=== PATIENT | male | born 1950 | race Caucasian/White ===

== ENCOUNTER → 2020-06-07 | Outpatient (CLI) | payer MEDICARE | END | disposition home or self-care (01) | LOC: RAH 09:07 | PROVIDERS: ATTEND Specialist | DX: I11.9 Hypertensive heart disease without heart failure (principal); I77.810 Thoracic aortic ectasia; R91.8 Other nonspecific abnormal finding of lung field; I34.0 Nonrheumatic mitral (valve) insufficiency; E78.2 Mixed hyperlipidemia; E88.81 Metabolic syndrome and other insulin resistance; R55 Syncope and collapse | CPT/HCPCS: 71250; 93306; 93356 ==

== ENCOUNTER → 2020-08-23 | Outpatient (CLI) | payer MEDICARE ==
[2020-08-23 16:27] LABS: CREATININE 1.4 mg/dL (0.5-1.5)
== END | disposition home or self-care (01) ==
LOC: RAH 15:04
PROVIDERS: ATTEND Orthopaedic Surgery
DX: M47.816 Spondylosis without myelopathy or radiculopathy, lumbar region (principal); M48.061 Spinal stenosis, lumbar region without neurogenic claudication; Z96.643 Presence of artificial hip joint, bilateral
CPT/HCPCS: 36415; 72148; 80048

== ENCOUNTER → 2020-09-07 | Outpatient (CLI) | payer MEDICARE ==
[~2020-09-07] MED LIST: GADOTERATE MEGLUMINE 5 MMOL/10 ML VIAL IV ONE
== END | disposition home or self-care (01) ==
LOC: RAH 07:49
PROVIDERS: ATTEND Orthopaedic Surgery
DX: M25.452 Effusion, left hip (principal); Z96.643 Presence of artificial hip joint, bilateral
CPT/HCPCS: 73723; A9575

== ENCOUNTER → 2020-10-06 | Outpatient (CLI) | payer MEDICARE | END | disposition home or self-care (01) | LOC: RAH 14:54 | PROVIDERS: ATTEND Neurological Surgery | DX: I70.213 Atherosclerosis of native arteries of extremities with intermittent claudication, bilateral legs (principal) | CPT/HCPCS: 93925 ==

== ENCOUNTER → 2023-02-15 | Outpatient (CLI) | payer MEDICARE ==
[2023-02-15 15:14] LABS: BASOPHILS # (AUTO) 0.09 K/uL (0.00-0.20); BASOPHILS % (AUTO) 1.5 % (0.0-5.0); EOSINOPHILS # (AUTO) 0.16 K/uL (0.00-0.70); EOSINOPHILS % (AUTO) 2.6 % (0.0-8.0); HEMATOCRIT 47.5 % (42-54); IMMATURE GRANULOCYTE ABSOLUTE 0.03 K/uL (0-1); LYMPHOCYTES # (AUTO) 2.5 K/uL (1.0-4.8); LYMPHOCYTES % (AUTO) 40.1 % (21.0-51.0); MEAN CORPUSCULAR HEMOGLOBIN 32.9 pg (27.0-33.0); MEAN CORPUSCULAR HGB CONC 33.5 g/dL (32.0-36.0); MEAN CORPUSCULAR VOLUME 98.1 fL (79-99); MONOCYTES # (AUTO) 0.5 K/uL (0.1-1.0); MONOCYTES % (AUTO) 8.4 % (3.0-13.0); NEUTROPHILS # (AUTO) 2.9 K/uL (1.8-7.7); NEUTROPHILS % (AUTO) 46.9 % (40.0-77.0); PLATELET COUNT (AUTO) 218 K/uL (130-400); RED BLOOD CELL COUNT(AUTO) 4.84 MIL/uL (4.50-6.20); RED CELL DISTRIBUTION WIDTH 13.2 % (11.0-15.5); WHITE BLOOD COUNT (AUTO) 6.2 K/uL (4.8-10.8)
[2023-02-15 15:37] LABS: BILIRUBIN,TOTAL 0.5 mg/dL (0.2-1.0); CREATININE 1.3 mg/dL (0.5-1.5); T4 (THYROXINE) 6.9 ug/dL (4.7-13.3); THYROID STIMULATING HORMONE 0.79 uIU/mL (0.36-3.74)
== END | disposition home or self-care (01) ==
LOC: LAB 11:21
PROVIDERS: ATTEND Internal Medicine Cardiovascular Disease
DX: I25.10 Atherosclerotic heart disease of native coronary artery without angina pectoris (principal); I10 Essential (primary) hypertension; Z79.899 Other long term (current) drug therapy
CPT/HCPCS: 36415; 80053; 80061; 84436; 84443; 84479; 85025

== ENCOUNTER → 2023-02-28 | Outpatient (CLI) | payer OTHER | END | disposition home or self-care (01) | LOC: RAH 16:04 | PROVIDERS: ATTEND Internal Medicine Cardiovascular Disease | DX: Z13.6 Encounter for screening for cardiovascular disorders (principal) | CPT/HCPCS: 75571 ==

== ENCOUNTER → 2023-04-05 | Outpatient (CLI) | payer OTHER | END | disposition home or self-care (01) | LOC: SHCH 12:38 | PROVIDERS: ATTEND Internal Medicine Cardiovascular Disease | DX: I70.203 Unspecified atherosclerosis of native arteries of extremities, bilateral legs (principal) | CPT/HCPCS: 93925 ==

== ENCOUNTER 2023-12-27 11:08 | Emergency (ER) | payer OTHER, MEDICARE ==
[~2023-12-27] VITALS: Ht 193 cm; Wt 104.3 kg
[~2023-12-27 11:08] MED LIST changes: +AEC81 PO; +AMLO-258 PO; +CELE-125 PO; +CLOP75TA32 PO; +EZET10TA48 PO; +GABA300C PO; -GADOTERATE MEGLUMINE 5 MMOL/10 ML VIAL IV ONE; +HYDR12.54 PO; +LOSA50TA64 PO; +MAGN400T40 PO; +METO-391 PO; +OMEG100033 PO; +OMEP20CA12 PO; +PANT20TA18 PO; +POTA99CA PO; +TIZA-211 PO; +UBID400C8 PO; +[UNRECOGNIZED DRUG - OTHER] PO; +kelp PO; +vitamin e PO
[2023-12-27 11:09] VITALS: TEMP 97.9
[2023-12-27 12:01] LABS: BASOPHILS # (AUTO) 0.07 K/uL (0.00-0.20); BASOPHILS % (AUTO) 1.1 % (0.0-5.0); EOSINOPHILS # (AUTO) 0.12 K/uL (0.00-0.70); EOSINOPHILS % (AUTO) 1.9 % (0.0-8.0); IMMATURE GRANULOCYTE ABSOLUTE 0.02 K/uL (0-1); LYMPHOCYTES # (AUTO) 2.3 K/uL (1.0-4.8); LYMPHOCYTES % (AUTO) 36.2 % (21.0-51.0); MEAN CORPUSCULAR HEMOGLOBIN 32.3 pg (27.0-33.0); MEAN CORPUSCULAR HGB CONC 33.6 g/dL (32.0-36.0); MEAN CORPUSCULAR VOLUME 96.2 fL (79-99); MONOCYTES # (AUTO) 0.5 K/uL (0.1-1.0); MONOCYTES % (AUTO) 7.7 % (3.0-13.0); NEUTROPHILS # (AUTO) 3.3 K/uL (1.8-7.7); NEUTROPHILS % (AUTO) 52.8 % (40.0-77.0); PLATELET COUNT (AUTO) 196 K/uL (130-400); RED BLOOD CELL COUNT(AUTO) 4.68 MIL/uL (4.50-6.20); RED CELL DISTRIBUTION WIDTH 13.1 % (11.0-15.5); WHITE BLOOD COUNT (AUTO) 6.3 K/uL (4.8-10.8)
[2023-12-27 12:10] LABS: CREATININE 1.6 mg/dL (0.5-1.3); POTASSIUM 4.7 mmol/L (3.5-5.1)
[2023-12-27 12:25] LABS: B-TYPE NATRIURETIC PEPTIDE 54 pg/mL (0-100)
[2023-12-27] MEDS ORDERED: FURO-152 PO (13:21)
[2023-12-27 13:31] VITALS: BP 135/69; PULSE 56; RESP 16; O2SAT 100
== END 2023-12-27 13:35 | disposition home or self-care (01) ==
LOC: EDH 11:08
DX: R60.0 Localized edema (principal); I12.9 Hypertensive chronic kidney disease with stage 1 through stage 4 chronic kidney disease, or unspecified chronic kidney disease; N18.30 Chronic kidney disease, stage 3 unspecified; K21.9 Gastro-esophageal reflux disease without esophagitis; M19.90 Unspecified osteoarthritis, unspecified site; E78.00 Pure hypercholesterolemia, unspecified; Z88.8 Allergy status to other drugs, medicaments and biological substances; Z79.82 Long term (current) use of aspirin; Z79.899 Other long term (current) drug therapy; Z95.1 Presence of aortocoronary bypass graft; Z98.890 Other specified postprocedural states
CPT/HCPCS: 36415; 80048; 83735; 83880; 85025; 93005

== ENCOUNTER 2024-04-02 18:07 | Observation (INO) | payer OTHER ==
[~2024-04-02] VITALS: Ht 190.5 cm; Wt 101.6 kg
[~2024-04-02 18:07] MED LIST changes: +ALIR75PE5 SQ; +AMLO-257 PO; -AMLO-258 PO; +ASCO100031 PO; +CETI10TA87 PO; +COQ10 PO; +DOCU-116 PO; +HYDR-4060 PO; +HYDR5TAB14 PO; -MAGN400T40 PO; -OMEP20CA12 PO; +TEST200V21 IM; +TIZA-194 PO; -TIZA-211 PO; -UBID400C8 PO; +[UNRECOGNIZED DRUG - OTHER] PO
[2024-04-02] MEDS: ondanSETRON 4MG INJ IVP ONE (18:39)
[2024-04-02] MEDS: morPHINE 4 MG SYG IVP ONE (18:39)
--- NOTE | 2024-04-02 19:25 | HMCIMG ---
FEMUR 2 VW LEFT REASON: pain, TECHNIQUE: 4 views were performed. FINDINGS: There is a total joint prosthesis in place. There is dislocation of the femoral head component. There is a knee joint prosthesis in place, hardware appears intact. There are no visible fractures. IMPRESSION: 1. Dislocation of the femoral head component of the total hip joint prosthesis.
[2024-04-02] MEDS: hydroMORPHone 1 MG INJ IVP ONE (19:30)
--- NOTE | 2024-04-02 19:40 | NUR ---
CONSCIOUS SEDATION FOR L HIP REDUCTION STARTED AT THIS TIME. 2 RN, ED MD, RT, XRAY PRESENT AT TIME OF PROCEDURE. PLS REFER TO SEDATION FLOWSHEET.
--- NOTE | 2024-04-02 20:12 | HMCIMG ---
HIP UNILAT 2-3VW LEFT REASON: post reduction TECHNIQUE: 2 views were obtained. FINDINGS: There is left total hip joint prosthesis in place. There is no evidence of fracture or dislocation. The soft tissues appear unremarkable. There is no evidence of a radiopaque foreign body. IMPRESSION: No acute findings.
[2024-04-02] MEDS: MIDAZOLAM HCL 1 MG/ML 2ML VIAL IVP ONE (20:36)
[2024-04-02] MEDS: ketaMINE 50MG/ML SYRINGE 50 MG/ML DISP.SYRIN IM ONE (20:37)
--- NOTE | 2024-04-02 20:41 | ERN ---
ED Note History of Present Illness Stated Complaint: LEFT HIP PAIN AFTER STRETCHING EXERCISE Chief Complaint: Hip Pain/Injury Time Seen by MD: 18:15 Time Seen by Midlevel: 18:15 Dictation: The patient is a 73-year-old male with a history of CAD, left knee replacement, left hip replacement who presents to the emergency department with left hip pain onset 4:30 p.m.. Patient reports he was out walking and wanted to stretch his legs or he put his left leg over a bench and bent down causing him to have disc omfort. Denies any falls. Denies any other injuries. Allergies: Coded Allergies: acetaminophen (Unverified Allergy, Unknown, 01/31/24) pramipexole (Unverified Allergy, Unknown, 05/09/23) propoxyphene (Unverified Allergy, Unknown, 01/31/24) Home Meds Active Scripts Docusate Sodium (Colace) 100 Mg Capsule, 1 CAP PO BID for 30 Days, #60 CAP 0 Refills Prov:JEFFRY RODRIGUEZ MD 02/05/24 Tizanidine HCl (Tizanidine HCl) 2 Mg Tablet, 4 MG PO Q8H, #84 TAB 0 Refills Prov:JEFFRY RODRIGUEZ MD 02/05/24 Hydrocodone/Acetaminophen (Hydrocodon-Acetaminophen 5-325) 5 Mg-325 Mg Tablet, 1-2 TAB PO Q4H PRN for SEVERE PAIN (7-10), #84 TAB 0 Refills Prov:JEFFRY RODRIGUEZ MD 02/05/24 Reported Medications Losartan Potassium (Losartan Potassium) 25 Mg Tablet, 25 MG PO BID, TAB 04/03/24 Alirocumab (Praluent Pen) 75 Mg/Ml Pen.injctr, 1 SYR SQ [id number] for 28 Days, #2 ML 0 Refills 01/31/24 [Magnesium Taur] No Conflict Check, 2500 MG PO DAILY 01/31/24 Ascorbic Acid (Vitamin C) 1,000 Mg Tablet, 1 TAB PO DAILY for 15 Days, #15 TAB 0 Refills DIRECTED 01/31/24 [Coq10] No Conflict Check, 200 MG PO DAILY 01/31/24 Testosterone Cypionate (Testosterone Cypionate) 200 Mg/Ml Vial, 200 MG IM 2TIMES MONTH, VIAL 01/31/24 Hydrocortisone (Hydrocortisone) 5 Mg Tablet, 1 TAB PO DAILY for 30 Days, #90 TAB 0 Refills 01/31/24 Cetirizine HCl (Cetirizine HCl) 10 Mg Tab.chew, 1 TAB PO DAILY for allergy symptoms for 30 Days, #30 TAB 0 Refills 01/31/24 Potassium Citrate (Potassium) 99 Mg Capsule, 99 MG PO DAILY, CAP 10/31/23 [place]-3/Dha/Epa/Fish Oil (Fish Oil 1,000 mg Softgel) 1,000 Mg (120 Mg-180 Mg) Capsule, 3000 MG PO DAILY, CAP 10/31/23 Metoprolol Succinate (Metoprolol Succinate) 50 Mg Tab.er.24h, 50 MG PO DAILY, TAB 10/31/23 Clopidogrel Bisulfate (Clopidogrel) 75 Mg Tablet, 75 MG PO DAILY, TAB 10/31/23 Aspirin (ASPIRIN 81 MG ECTAB) 81 Mg Ectab, 81 MG PO HS, TAB.EC 10/31/23 Pantoprazole Sodium (Pantoprazole Sodium) 20 Mg Tablet.dr, 20 MG PO HS, TAB 10/31/23 [kelp] No Conflict Check, 1 TAB PO DAILY 05/09/23 [vitamin e] No Conflict Check, 1 TAB PO DAILY 05/09/23 [turmeric curc] No Conflict Check, 1500 MG PO DAILY 05/09/23 Celecoxib (Celecoxib) 200 Mg Capsule, 200 MG PO BID, CAP 05/09/23 Gabapentin (Neurontin) 300 Mg Capsule, 300 MG PO TID, CAP 05/09/23 Ezetimibe (Ezetimibe) 10 Mg Tablet, 10 MG PO HS, TAB 05/09/23 Discontinued Reported Medications Amlodipine Besylate (Amlodipine Besylate) 5 Mg Tablet, 5 MG PO HS, TAB 01/31/24 Losartan Potassium (Losartan Potassium) 50 Mg Tablet, 50 MG PO BID, TAB 10/31/23 Hydrochlorothiazide (Hydrochlorothiazide) 12.5 Mg Tablet, 12.5 MG PO DAILY, TAB 10/31/23 Past Medical History Past Medical History: Arthritis, GERD, High Cholesterol, Hypertension, DC Additional Past Medical Hx: HEART CATH Surgical History: CABG, Other Surgical History Other: PERFORATED COLON, LEFT HIP REPLACEMENT X2, LEFT KNEE REPLACEMENT Social History: Lives with family RN Note Reviewed/Agreed w/PFSH: Yes Review of System Dictation Constitutional: Negative for fever,chills, and weight loss Eyes: Negative for injury, pain,redness, and discharge ENT: Negative for injury,pain or swelling Cardiovascular: Negative for chest pain, palpitations, and edema Respiratory: Negative for shortness of breath, cough, and wheezing, Abdomen/GI: Negative for abdominal pain, nausea, vomiting, diarrhea, and constipation Back: Negative for injury and pain : Negative for injury, bleeding and discharge MS/Extremity: Negative for injury and deformity. Positive for left hip pain Skin: Negative for rash, and discoloration Neuro: Negative for headache, weakness, numbness, tingling, and seizure Psych: Negative for suicide ideation, homicidal ideation, and hallucinations Initial Vital Sign VS Vital Signs Date Time Temp Pulse Resp B/P (MAP) Pulse Ox O2 Delivery O2 Flow Rate FiO2 04/02/24 18:13 97.5 72 22 176/83 98 Room Air 0 04/02/24 19:30 21 Physical Exam Dictation Vital Signs reviewed General Appearance: Alert, oriented x 3, no acute distress, well developed, nourished. Head and Face: non-traumatic. Eyes: PERRL, pink conjunctivas, eyelid no trauma, anterior chamber with arcus senilis. Ears: Pinnas intact and no signs of trauma or erythema ear canals clear and no discharge TM no erythema Nose: No discharge, no bleeding. Oropharynx: Mouth normal, tongue pink. pharynx clear,no erythema, tonsils no exudates, no abscesses noted, mucous membrane moist Neck: Supple, non-tender, no thyromegaly, no masses, no JVD, no bruits Breast:Deferred Chest:No tenderness, no crepitus, no paradoxical movement, no retractions Lungs:Clear, well-ventilated, symmetric, no rales, no wheezing, no rhonchi, no stridor, good breath sounds bilaterally Heart: Regular rate, regular rhythm, no murmur, no gallops Vascular: no peripheral edema, dorsalis pedis 2+ Abdomen: Soft, positive bowel sounds, nondistended, no guarding, nontender, no rebound, no masses no hepatomegaly, no splenomegaly, no Noble's sign, no hernias. Rectal: Deferred Genital: Deferred Neurological: Normal speech, motor function intact, sensory function intact Musculoskeletal: Neck nontender, full range of motion, back nontender, full range of motion, Extremities: nontender, decreased range of motion to left lower extremity, cap refill less than 2 seconds, Skin: Color pink, dry, no turgor, no rash, no lacerations, no abrasions, no contusions. Lymphatic: Deferred Results (Laboratory/Radiology) Laboratory/Radiology Laboratory Tests Test 04/02/24 20:36 White Blood Count 9.6 K/uL (4.8-10.8) Red Blood Count 4.26 MIL/uL (4.50-6.20) L Hemoglobin 13.9 g/dL (14.0-18.0) L Hematocrit 41.7 % (42-54) L Mean Corpuscular Volume 97.9 fL (79-99) Mean Corpuscular Hemoglobin 32.6 pg (27.0-33.0) Mean Corpuscular Hemoglobin Concent 33.3 g/dL (32.0-36.0) Red Cell Distribution Width 12.6 % (11.0-15.5) Platelet Count 168 K/uL (130-400) Mean Platelet Volume 10.1 fL (7.5-10.5) Immature Granulocyte % (Auto) 0.3 % (0-1) Neutrophils (%) (Auto) 67.8 % (40.0-77.0) Lymphocytes (%) (Auto) 26.0 % (21.0-51.0) Monocytes (%) (Auto) 5.3 % (3.0-13.0) Eosinophils (%) (Auto) 0.1 % (0.0-8.0) Basophils (%) (Auto) 0.5 % (0.0-5.0) Neutrophils # (Auto) 6.5 K/uL (1.8-7.7) Lymphocytes # (Auto) 2.5 K/uL (1.0-4.8) Monocytes # (Auto) 0.5 K/uL (0.1-1.0) Eosinophils # (Auto) 0.01 K/uL (0.00-0.70) Basophils # (Auto) 0.05 K/uL (0.00-0.20) Absolute Immature Granulocyte (auto 0.03 K/uL (0-1) Nucleated Red Blood Cells 0.0 % (0.0-0.19) Sodium Level 145 mmol/L (136-145) Potassium Level 4.1 mmol/L (3.5-5.1) Chloride Level 108 mmol/L (101-111) Carbon Dioxide Level 28 mmol/L (21-32) Blood Urea Nitrogen 23 mg/dL (7-18) H Creatinine 1.3 mg/dL (0.5-1.3) Glomerular Filtration Rate Calc 58 mL/min (>90) Random Glucose 119 mg/dL (70-105) H Total Calcium 8.8 mg/dL (8.5-10.1) REASON: post reduction ORDERING PHYSICIAN: HEATH PEARL [employer]KER PROCEDURE: HIP U 2V L - HIP UNILAT 2-3VW LEFT HIP UNILAT 2-3VW LEFT REASON: post reduction TECHNIQUE: 2 views were obtained. FINDINGS: There is left total hip joint prosthesis in place. There is no evidence of fracture or dislocation. The soft tissues appear unremarkable. There is no evidence of a radiopaque foreign body. IMPRESSION: No acute findings. REASON: pain, ORDERING PHYSICIAN: HEATH PEARL [employer]KER PROCEDURE: FEM LT 2 - FEMUR 2 VW LEFT FEMUR 2 VW LEFT REASON: pain, TECHNIQUE: 4 views were performed. FINDINGS: There is a total joint prosthesis in place. There is dislocation of the femoral head component. There is a knee joint prosthesis in place, hardware appears intact. There are no visible fractures. IMPRESSION: 1. Dislocation of the femoral head component of the total hip joint prosthesis. Labs Reviewed?: Yes ED Course ED Course Orders Procedure Category Date Status Time Morphine 4mg Syg PHA 04/02/24 Complete (Morphine 4mg Syg) 18:30 Ondansetron 4mg Inj PHA 04/02/24 Complete (Zofran 4mg Inj) 18:30 Femur 2 Vw Left RAD 04/02/24 Resulted 18:30 Hydromorphone 1 Mg PHA 04/02/24 Complete Inj (Dilaudid 1mg Inj 19:30 Ketamine 50mg/Ml PHA 04/02/24 Complete Syringe (Ketamine 19:30 Midazolam Hcl (Versed) PHA 04/02/24 Complete 19:30 Hip Unilat 2-3vw Left RAD 04/02/24 Resulted 19:28 Cbc With Differential LAB 04/02/24 Complete 20:20 Basic Metabolic Panel LAB 04/02/24 Complete 20:20 Admit Orders ADM 04/02/24 Transmitted 21:11 Vital Signs Every 4 CPOE 04/02/24 Transmitted Hours 21:13 Activity: Bed Rest CPOE 1/2/25 Transmitted 21:13 Heart Healthy Diet DIET 04/03/24 Transmitted Breakfast O2 Order RT 04/02/24 Transmitted 21:13 Cbc Without LAB 04/03/24 In Process Differential 04:00 Basic Metabolic Panel LAB 04/03/24 In Process 04:00 Magnesium LAB 04/03/24 In Process 04:00 Phosphorus LAB 04/03/24 In Process 04:00 Thyroid Stimulating LAB 04/03/24 In Process Hormone 04:00 Lactulose 20 Gm/30 Ml PHA 04/02/24 In Process Udcup (Constulose 21:30 Docusate Sodium 100 PHA 04/02/24 In Process Mg Cap (Colace 100mg 21:30 Ondansetron 4mg Inj PHA 04/02/24 In Process (Zofran 4mg Inj) 21:30 Hydralazine 20mg Inj PHA 04/02/24 In Process (Apresoline 20mg In 21:30 Telemetry Monitoring CPOE 04/02/24 Transmitted 21:13 Initiate GISEL 04/02/24 In Process Hyperglycemia Protoco 21:13 Insulin Regular, PHA 04/03/24 In Process Human 3ml (Humulin R 07:30 Tramadol Hcl (Ultram) PHA 04/02/24 In Process 21:30 Pt Eval And Treat PT 04/02/24 Transmitted 21:26 *Nursing CPOE 04/02/24 Transmitted Communication: 21:31 Melatonin (Melatonin) PHA 04/02/24 Complete 23:30 Current Medications Medications (Trade) Dose Ordered Sig/Jaime Route PRN Reason Start Time Stop Time Status Last Admin Dose Admin Hydromorphone HCl (DiLAUDid 1MG INJ) 1 mg ONCE ONCE IVP 04/02/24 19:30 04/02/24 19:31 DC Ketamine HCl (ketaMINE 50MG/ ML SYRINGE) 100 mg ONCE ONCE IM 04/02/24 19:30 04/02/24 19:31 DC 04/02/24 20:37 Midazolam HCl (Versed) 5 mg ONCE ONCE IVP 04/02/24 19:30 04/02/24 19:31 DC 04/02/24 20:36 Morphine Sulfate (morPHINE 4MG SYG) 4 mg ONCE ONCE IVP 04/02/24 18:30 04/02/24 18:37 DC 04/02/24 18:39 Ondansetron HCl (zoFRAN 4MG INJ) 4 mg ONCE ONCE IVP 04/02/24 18:30 04/02/24 18:37 DC 04/02/24 18:39 Vital Signs Date Time Temp Pulse Resp B/P (MAP) Pulse Ox O2 Delivery O2 Flow Rate FiO2 04/03/24 00:05 Room Air* 0 04/02/24 23:30 98.1 70 20 168/94 98 Room Air 04/02/24 19:30 98.2 71 20 175/83 98 Room Air* 0 04/02/24 18:13 97.5 72 22 176/83 98 Room Air 0 Medical Decision Making MDM MDM: The patient is a 73-year-old male with a history of CAD, left knee replacement, left hip replacement who presents to the emergency department with left hip pain onset 4:30 p.m.. Patient reports he was out walking and wanted to stretch his legs or he put his left leg over a bench and bent down causing him to have discomfort. Denies any falls. Denies any other injuries. On initial x-ray patient had a dislocated hip. Conscious sedation was performed and a reduction was done by Dr. Sanchez. Patient tolerated procedure well. Patient now awake alert and oriented. Comfortable on stretcher. CMS intact. Will be admitted for physical therapy. Differential diagnosis: Femur fracture, dislocated prosthesis, hip contusion Comorbidities: Arthritis, CAD, hip replacement, knee replacement Tests considered and not ordered secondary to shared decision making include: none Previous outside records reviewed: none Risk of complication and/or morbidity or mortality of patient management: The patient meets criteria for admission. Need for emergency major/minor surgery: No There are no social concerns with this patient. I independently interpreted the tests I ordered (labs, urinalysis, etc.). I discussed the case with the hospitalist for admission. Shira RUPERT who accepts admission I discussed the case with the following specialists: none. Historian: pateint. I independently interpreted imaging studies and EKGs that I ordered (US, CT, XR, EKG, etc.). External chart review: none. Medical management and examination interpretation discussions were had by me with other qualified healthcare professionals as indicated for the patient's care. Procedure Procedure Dictation: Mallampati Score: [3] Medications used: [ ketamine, versed] ASA Class: [I-healthy / II-mild systemic disease / III-severe systemic disease / IV-incapacitating systemic disease] Pre-anesthesia evaluation, including history, exam, and informed consent is documented in the chart. Consent: The risks and benefits of monitored anesthesia care, including the risk of aspiration, deep sedation requiring airway management including possible intubation, nausea/vomiting and the risks of not performing the procedure, including severe pain and inability to complete the procedure, were all discussed with the patient. The alternatives of performing the procedure, including local anesthesia and IV analgesia, also discussed. The patient has a ride home available. Pre-procedure time out was obtained. Monitoring: Continuous monitoring of heart rate, respiratory rate and pulse oximetry. Supplemental oxygen prior to and during procedure via nasal cannula. Resuscitation equipment available at the bedside during sedation. The patient recovered from the sedation without complication or incident. Patient returned to pre-sedation level of awareness. The monitoring was discontinued at this time. Post-anesthesia evaluation: Respiratory function, cardiovascular function, temperature, and mental status returned to pre-anesthetic state. Pain was controlled. The patient tolerated p.o. Total Intra-service time (In Minutes): [30 ] Joint Reduction Site: hip (L) Conscious Sedation: Yes Reduction Attempts: 1 Pre-Procedure NV Exam: Yes Post-Procedure NV Exam: Yes post joint reduction film: joint reduced Critical Care Note Critical Time: other (37) Comment(s) Total critical care time was 37 minutes. Excluding time for procedures. Management of critically ill patient with concern for acute decompensation. Management included interpretation of laboratory values and imaging, hemodynamics, time for consultation with consultants and admitting physician. DX & DISP Disposition: Inpatient Decision to Admit Date: Apr 02, 2024 Decision to Admit Time: 21:11 Departure Impression: Primary Impression: Dislocation of prosthesis of left hip joint Condition: Stable Referrals: ASIF JASMINE MD (PCP) ATTESTATION BY PHYSICIAN I PERFORMED THE SUBSTANTIVE PORTION OF THE VISIT. I HAVE REVIEWED AND PERSONALLY MADE AND APPROVED THE MANAGEMENT PLAN THAT IS DOCUMENTED IN THE NOTE BY MYSELF FOR THE A PP. I ACKNOWLEDGED FOR RESPONSIBILITY FOR THE PATIENT'S MANAGEMENT PLAN. I have examined patient, & reviewed all documents, & agreed W/ the Diagnosis, and Plan HEATH PEARL Apr 02, 2024 20:41 NORRIS SANCHEZ MD Apr 02, 2024 23:26
[2024-04-02 20:42] LABS: BASOPHILS # (AUTO) 0.05 K/uL (0.00-0.20); BASOPHILS % (AUTO) 0.5 % (0.0-5.0); EOSINOPHILS # (AUTO) 0.01 K/uL (0.00-0.70); EOSINOPHILS % (AUTO) 0.1 % (0.0-8.0); HEMATOCRIT 41.7 % (42-54); IMMATURE GRANULOCYTE ABSOLUTE 0.03 K/uL (0-1); LYMPHOCYTES # (AUTO) 2.5 K/uL (1.0-4.8); MEAN CORPUSCULAR HEMOGLOBIN 32.6 pg (27.0-33.0); MEAN CORPUSCULAR HGB CONC 33.3 g/dL (32.0-36.0); MEAN CORPUSCULAR VOLUME 97.9 fL (79-99); MONOCYTES # (AUTO) 0.5 K/uL (0.1-1.0); MONOCYTES % (AUTO) 5.3 % (3.0-13.0); NEUTROPHILS # (AUTO) 6.5 K/uL (1.8-7.7); NEUTROPHILS % (AUTO) 67.8 % (40.0-77.0); PLATELET COUNT (AUTO) 168 K/uL (130-400); RED BLOOD CELL COUNT(AUTO) 4.26 MIL/uL (4.50-6.20); RED CELL DISTRIBUTION WIDTH 12.6 % (11.0-15.5); WHITE BLOOD COUNT (AUTO) 9.6 K/uL (4.8-10.8)
[2024-04-02 20:51] LABS: CREATININE 1.3 mg/dL (0.5-1.3); POTASSIUM 4.1 mmol/L (3.5-5.1)
[2024-04-02] MEDS ORDERED: hydrALAZine 20MG/ML VIAL IV PRN (21:30)
[2024-04-02] MEDS ORDERED: ondanSETRON 4MG INJ IVP PRN (21:30)
[2024-04-02] MEDS ORDERED: traMADol HCL 50 MG TABLET PO PRN (21:30)
[2024-04-02] MEDS ORDERED: doCUSate SODIUM 100 MG CAP PO PRN (21:30)
[2024-04-02] MEDS ORDERED: LACTULOSE 20 GM/30 ML UDCUP PO PRN (21:30)
--- NOTE | 2024-04-02 21:30 | HP ---
[facility] HISTORY AND PHYSICAL Date of Service: Apr 02, 2024 Time of Service: 21:30 ASIF JASMINE MD (PCP) Supervising physicians: Dr. Youssef and Dr. Aubrie Crump HISTORY OF PRESENT ILLNESS: Mr. Lomas is a 73-year-old male with a history of HTN, arthritis, peripheral neuropathy, hyperlipidemia, GERD, CAD, left knee replacement, left hip replacement who [place] [facility] [place] with left hip pain onset 4:30 p.m.. Patient reported he was out walking and wanted to stretch his legs or he put his left leg over a bench and bent down causing him to have discomfort. Denies any falls. Denies any other injuries. x-ray: 1. Dislocation of the femoral head component of the total hip joint prosthesis. Under conscious sedation ED physician reduced the left hip. Provider request patient be admitted with the diagnosis of dislocation of prosthesis of left hip joint. I went to assess the patient at bedside. Patient was awake, breathing was even, unlabored. Patient reports pain to left hip is improved after the manipulation. Patient reports will like to be discharged due to feeling better, but accepts admission for observation and physical therapy. I informed patient of labs, diagnostics, and plan of care. The patient verbalizes understanding and is in agreement with the plan. Plan and assessment as listed below. REVIEW OF SYSTEMS 12-point ROS reviewed with patient. All pertinent positives mentioned above. Otherwise negative, nonpertinent, and noncontributory. PAST MEDICAL HISTORY: As mentioned above PAST SURGICAL HISTORY: Heart catheterization, CABG, perforated colon, left hip replacement x2, left knee replacement PAST SOCIAL HISTORY: Lives with family. FAMILY HISTORY: Noncontributory Coded Allergies: acetaminophen (Unverified Allergy, Unknown, 01/31/24) pramipexole (Unverified Allergy, Unknown, 05/09/23) propoxyphene (Unverified Allergy, Unknown, 01/31/24) PHYSICAL EXAM GENERAL APPEARANCE: The patient is awake, alert, and oriented, in no acute cardiopulmonary distress. NEUROLOGICAL: Cranial nerves II-XII grossly intact. Motor is 5/5 in bilateral upper and lower extremities proximal to distal. No sensory deficits. HEENT: Face is symmetric. Pupils are equal and reactive. Extraocular movements are intact. NECK: Supple. No JVD. No thyromegaly. No submental, submandibular, pre-/post auricular, occipital or supraclavicular lymphadenopathy. CHEST: Normal chest expansion. No Telemetry. LUNGS: Absence of any rales, rhonchi or any wheezing. CARDIOVASCULAR: Regular. S1 and S2 normal. No appreciable rubs, murmurs or gallops. ABDOMEN: Soft, nontender, and nondistended. There is no rebound, voluntary guarding, or rigidity. : Deferred. No E[place]ley. EXTREMITIES: Non-edematous and not cyanotic. No clubbing. Good capillary refill. SKIN: No skin breakdown. Vital Sign (Last 24 Hours) 04/02/24 19:30 Temp 98.2 Pulse 71 Resp 20 B/P (MAP) 175/83 Pulse Ox 98 O2 Delivery Room Air* O2 Flow Rate 0 FiO2 21 LABS: Laboratory: Test 04/02/24 20:36 Range/Units White Blood Count 9.6 4.8-10.8 K/uL Red Blood Count 4.26 L 4.50-6.20 MIL/uL Hemoglobin 13.9 L 14.0-18.0 g/dL Hematocrit 41.7 L 42-54 % Mean Corpuscular Volume 97.9 79-99 fL Mean Corpuscular Hemoglobin 32.6 27.0-33.0 pg Mean Corpuscular Hemoglobin Concent 33.3 32.0-36.0 g/dL Red Cell Distribution Width 12.6 11.0-15.5 % Platelet Count 168 130-400 K/uL Mean Platelet Volume 10.1 7.5-10.5 fL Immature Granulocyte % (Auto) 0.3 0-1 % Neutrophils (%) (Auto) 67.8 40.0-77.0 % Lymphocytes (%) (Auto) 26.0 21.0-51.0 % Monocytes (%) (Auto) 5.3 3.0-13.0 % Eosinophils (%) (Auto) 0.1 0.0-8.0 % Basophils (%) (Auto) 0.5 0.0-5.0 % Neutrophils # (Auto) 6.5 1.8-7.7 K/uL Lymphocytes # (Auto) 2.5 1.0-4.8 K/uL Monocytes # (Auto) 0.5 0.1-1.0 K/uL Eosinophils # (Auto) 0.01 0.00-0.70 K/uL Basophils # (Auto) 0.05 0.00-0.20 K/uL Absolute Immature Granulocyte (auto 0.03 0-1 K/uL Nucleated Red Blood Cells 0.0 0.0-0.19 % Sodium Level 145 136-145 mmol/L Potassium Level 4.1 3.5-5.1 mmol/L Chloride Level 108 101-111 mmol/L Carbon Dioxide Level 28 21-32 mmol/L Blood Urea Nitrogen 23 H 7-18 mg/dL Creatinine 1.3 0.5-1.3 mg/dL Glomerular Filtration Rate Calc 58 >90 mL/min Random Glucose 119 H 70-105 mg/dL Total Calcium 8.8 8.5-10.1 mg/dL Current Medications Medications (Trade) Dose Ordered Sig/Jaime Route PRN Reason Start Time Stop Time Status Last Admin Dose Admin Docusate Sodium (COLace 100MG CAP) 100 mg BID PRN PO c 04/02/24 21:30 05/02/24 21:29 Hydralazine HCl (APRESOLine 20MG INJ) 10 mg Q2H PRN IV SBP GREATER THAN 160 04/02/24 21:30 05/02/24 21:29 Insulin Human Regular (humuLIN R 100 UNIT/ML 3ML) INSULIN SLIDING SCAL... ACHS SQ 04/03/24 07:30 05/03/24 07:29 Lactulose (Constulose 20gm/ 30ml Udcup) 20 gm Q6H PRN PO CONSTIPATION 04/02/24 21:30 05/02/24 21:29 Ondansetron HCl (zoFRAN 4MG INJ) 4 mg Q6H PRN IVP NAUSEA/VOMITING 04/02/24 21:30 05/02/24 21:29 DIAGNOSTICS / RADIOLOGY: [ ] ASSESSMENT: Dislocation of prosthesis of left hip joint, POA s/p reduction of left hip in ED on 04/02/2024 Acute left hip pain s/p dislocation of left hip joint, POA S/p left knee total knee arthroplasty done on 02/03/[address] Sol Wakefield Uncontrolled hypertension Peripheral neuropathy Anemia of chronic disease Acute on chronic kidney disease, GFR 58 Hyperglycemia without history of diabetes mellitus Chronic problem list: HTN, arthritis, peripheral neuropathy, hyperlipidemia, GERD, CAD, left knee replacement, left hip replacement s/p left heart catheterization with stent placement by Dr. Negro on 07/25/2023 PLAN: Admit to medical floor. P.r.n. medications for: Pain management Other p.r.n. medications for: Nausea, vomiting, constipation, hypertension. Reconciled home medications: Losartan, Trizanidine, vitamin-C, cetirizine, hydrocortisone, magnesium, aspirin, metoprolol succinate, omega-3, Protonix, potassium, Celebrex, Ezetimibe, gabapentin PT to evaluate and treat. Monitor renal and liver function. Monitor electrolytes and treat accordingly. Glucometer checks a.c. and HS with insulin regular sliding scale. Blood pressure checks every 4 hours and as needed. Reconcile home medications once available. A.m. labs: CBC, BNP, Mag, phos DVT and GI prophylax [facility] PLANNING 1. Which of the following were discussed? Hospice Care - No Therapeutic options - Yes Advance Directives - Yes Other discussions - 2. Discussed with who? Patient 3. Voluntary nature of this service was explained to the patient? Yes 4. Amount of time spent - __ over 35 minutes 5. Reviewed by Physician? (if this service was performed by NPP) Yes / No Patient seen and examined by me. Agree with note by BRICK CHIMNEY SUPERVISOR SEE ADDITIONAL ORDERS PER CHART DISCUSSED WITH NURSING STAFF SARAHI BETANCUR Apr 02, 2024 21:30
[2024-04-02 23:30] VITALS: BP 168/94; PULSE 70; RESP 20; TEMP 98
[2024-04-03] MEDS ORDERED: LOSA25TA41 PO (00:35)
[2024-04-03] MEDS: MELATONIN 5 MG TABLET PO ONE (00:40)
[2024-04-03 05:12] VITALS: BP 156/81; PULSE 68; RESP 18; TEMP 97.5
[2024-04-03 05:16] LABS: HEMATOCRIT 39.1 % (42-54); MEAN CORPUSCULAR HEMOGLOBIN 32.5 pg (27.0-33.0); MEAN CORPUSCULAR VOLUME 98.5 fL (79-99); RED BLOOD CELL COUNT(AUTO) 3.97 MIL/uL (4.50-6.20); WHITE BLOOD COUNT (AUTO) 8.1 K/uL (4.8-10.8)
[2024-04-03 05:33] LABS: CREATININE 1.3 mg/dL (0.5-1.3); MAGNESIUM 1.8 mg/dL (1.80-2.40); PHOSPHORUS 3.6 mg/dL (2.5-4.9); POTASSIUM 3.9 mmol/L (3.5-5.1); THYROID STIMULATING HORMONE 1.07 uIU/mL (0.36-3.74)
[2024-04-03] MEDS: INSULIN humuLIN R 100 UNIT/ML 3ML SQ SCH (05:51)
[2024-04-03] MEDS ORDERED: MAGNESIUM 2GM PREMIX 50ML 50 ML IV PRN (06:00)
[2024-04-03] MEDS ORDERED: PoTASSium chloRIDE 20MEQ ER 20 MEQ ERTAB PO PRN (06:00)
[2024-04-03] MEDS ORDERED: PoTASSium chloRIDE 10MEQ/100ML 100 ML IV PRN (06:00)
[2024-04-03] MEDS ORDERED: DEXTROSE 50%-WATER 50 ML DISP.SYRIN IV PRN (06:00)
[2024-04-03] MEDS ORDERED: GLUCAGON 1MG KIT 1 MG ML IM PRN (06:00)
[2024-04-03] MEDS ORDERED: PoTASSium chl 10% ELIXIR 20MEQ 20 MEQ/15 ML UDCUP PO PRN (06:00)
[2024-04-03] MEDS: TIZANIDINE HCL 2 MG TABLET PO SCH (06:21)
[2024-04-03 08:00] VITALS: BP 115/58; PULSE 71; RESP 18; TEMP 98.3; O2SAT 95
[2024-04-03] MEDS: HYDROCORTISONE PO SCH (08:38)
[2024-04-03] MEDS: EPA PO SCH (08:38)
[2024-04-03] MEDS: FISH OIL PO SCH (08:38)
[2024-04-03] MEDS: [UNRECOGNIZED DRUG - OTHER] PO SCH (08:38)
[2024-04-03] MEDS: DHA PO SCH (08:38)
[2024-04-03] MEDS: OMEGA PO SCH (08:38)
[2024-04-03] MEDS: CeleCOXib 200 MG CAP PO SCH (08:42)
[2024-04-03] MEDS: LoSARTan 25 MG TABLET PO SCH (08:42)
[2024-04-03] MEDS: GABAPENTIN 300 MG CAPSULE PO SCH (08:43)
[2024-04-03] MEDS: metOPROLol sucCINATE 50 MG TAB.SR.24H PO SCH (08:43)
[2024-04-03] MEDS: ASCORBIC ACID 500 MG TAB PO SCH (08:44)
[2024-04-03] MEDS: ceTIRIzine HCL 5 MG TABLET PO SCH (08:44)
--- NOTE | 2024-04-03 10:59 | NUR ---
DCP Pt awake, alert, oriented X3 lives with spouse Sofy Lomas [phone]. PCP is Ken Perez. Pt has a cane and walker was previously at [facility] for physical therapy. Anticipates discharge is for home. Addendum: 04/03/24 at 1102 by DALLAS BAKER RN CM Amended: Links added.
[2024-04-03 11:48] VITALS: BP 125/59; PULSE 61; RESP 18; TEMP 98.5
--- NOTE | 2024-04-03 13:45 | DS ---
Discharge Summary Hospital Course Summary: Mr. Fox is a 73-year-old male with a history of HTN, arthritis, peripheral neuropathy, hyperlipidemia, GERD, CAD, left knee replacement, left hip replacement who presented to [facility] emergency department with left hip pain onset 4:30 p.m.. Patient reported he was out walking and wanted to stretch his legs or he put his left leg over a bench and bent down causing him to have discomfort. Denies any falls. Denies any other injuries. x-ray: 1. Dislocation of the femoral head component of the total hip joint prosthesis. Under conscious sedation ED physician reduced the left hip. Provider request patient be admitted with the diagnosis of dislocation of prosthesis of left hip joint. I went to assess the patient at bedside. Patient was awake, breathing was even, unlabored. Patient reports pain to left hip is improved after the manipulation. Patient reports will like to be discharged due to feeling better, but accepts admission for observation and physical therapy. I informed patient of labs, diagnostics, and plan of care. The patient verbalizes understanding and is in agreement with the plan. PATIENT WAS EVALUATED BY PHYSICAL THERAPY AND CLEARED FOR THE DISCHARGE. Procedure(s): PATIENT: CAMILO FOX MR#: [id number] : 1950 SEX: M AGE: 73 LOCATION: [facility] ORDER 36 STATUS: REG ER [facility] REPORT#: [id number] SERVICE 29 REASON: pain, ORDERING PHYSICIAN: HEATH PEARL PROCEDURE: FEM LT 2 - FEMUR 2 VW LEFT FEMUR 2 VW LEFT REASON: pain, TECHNIQUE: 4 views were performed. FINDINGS: There is a total joint prosthesis in place. There is dislocation of the femoral head component. There is a knee joint prosthesis in place, hardware appears intact. There are no visible fractures. IMPRESSION: 1. Dislocation of the femoral head component of the total hip joint prosthesis. DICTATED BY: CAMILO TALBERT MD DATE: 04/02/241920 ELECTRONICALLY SIGNED BY: CAMILO TALBERT MD DATE: 04/02/241924 PATIENT: CAMILO FOX MR#: [id number] : 1950 SEX: M AGE: 73 LOCATION: [facility] ORDER 28 STATUS: REG ER REPORT#: [id number] SERVICE 27 REASON: post reduction ORDERING PHYSICIAN: HEATH PEARL PROCEDURE: HIP U 2V L - HIP UNILAT 2-3VW LEFT HIP UNILAT 2-3VW LEFT REASON: post reduction TECHNIQUE: 2 views were obtained. FINDINGS: There is left total hip joint prosthesis in place. There is no evidence of fracture or dislocation. The soft tissues appear unremarkable. There is no evidence of a radiopaque foreign body. IMPRESSION: No acute findings. 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 Sol Wakefield Uncontrolled hypertension Peripheral neuropathy Anemia of chronic disease Acute on chronic kidney disease, GFR 58 Hyperglycemia without history of diabetes mellitus Chronic problem list: HTN, arthritis, peripheral neuropathy, hyperlipidemia, GERD, CAD, left knee replacement, left hip replacement s/p left heart catheterization with stent placement by Dr. Negro on 07/25/2023 PLAN: ADMISSION DATE: 04/03/2024 DISCHARGE DATE: 2024 DISPOSITION: HOME CONDITION: STABLE NUT PROCESSING SUPERVISOR(S): NONE FOLLOW UP APPOINTMENT(S): PATIENT FOLLOW WITH THE PCP IN1 WEEK PROCEDURES: NONE IMAGING (S) REPORT ATTACHED TO SUMMARY : FEMUR X-RAY, HIP/PELVIS X-RAY MICROBIOLOGY: REPORT ATTACHED TO SUMMARY; AND ACTIVITY: AB ERMA HOME MEDICATIONS : CONTINUED NEW MEDICATIONS- NONE TEACHING: WE REINFORCED THE IMPORTANCE OF COMPLIANCE,WITH FOLLOW-UP APPOINTMENT AND MEDICATION COMPLIANCE. ADVISED PATIENT TO FOLLOW-UP WITH PCP EMERGENCY INSTRUCTIONS: THE PATIENT WAS INSTRUCTED TO PRESENT TO THE NEAREST EMERGENCY DEPARTMENT OR CALL 911 SHOULD THEIR SYMPTOMS RETURN OR WORSEN. Home Medications: Active Scripts Docusate Sodium (Colace) 100 Mg Capsule, 1 CAP PO BID for 30 Days, #60 CAP 0 Refills Prov:SOL WAKEFIELD MD 02/05/24 Tizanidine HCl (Tizanidine HCl) 2 Mg Tablet, 4 MG PO Q8H, #84 TAB 0 Refills Prov:SOL WAKEFIELD MD 02/05/24 Hydrocodone/Acetaminophen (Hydrocodon-Acetaminophen 5-325) 5 Mg-325 Mg Tablet, 1-2 TAB PO Q4H PRN for SEVERE PAIN (7-10), #84 TAB 0 Refills Prov:SOL WAKEFIELD MD 02/05/24 Reported Medications Losartan Potassium (Losartan Potassium) 25 Mg Tablet, 25 MG PO BID, TAB 04/03/24 Alirocumab (Praluent Pen) 75 Mg/Ml Pen.injctr, 1 SYR SQ [id number] for 28 Days, #2 ML 0 Refills 01/31/24 [Magnesium Taur] No Conflict Check, 2500 MG PO DAILY 01/31/24 Ascorbic Acid (Vitamin C) 1,000 Mg Tablet, 1 TAB PO DAILY for 15 Days, #15 TAB 0 Refills DIRECTED 01/31/24 [Coq10] No Conflict Check, 200 MG PO DAILY 01/31/24 Testosterone Cypionate (Testosterone Cypionate) 200 Mg/Ml Vial, 200 MG IM 2TIMES MONTH, VIAL 01/31/24 Hydrocortisone (Hydrocortisone) 5 Mg Tablet, 1 TAB PO DAILY for 30 Days, #90 TAB 0 Refills 01/31/24 Cetirizine HCl (Cetirizine HCl) 10 Mg Tab.chew, 1 TAB PO DAILY for allergy symptoms for 30 Days, #30 TAB 0 Refills 01/31/24 Potassium Citrate (Potassium) 99 Mg Capsule, 99 MG PO DAILY, CAP 10/31/23 [place]-3/Dha/Epa/Fish Oil (Fish Oil 1,000 mg Softgel) 1,000 Mg (120 Mg-180 Mg) Capsule, 3000 MG PO DAILY, CAP 10/31/23 Metoprolol Succinate (Metoprolol Succinate) 50 Mg Tab.er.24h, 50 MG PO DAILY, TAB 10/31/23 Clopidogrel Bisulfate (Clopidogrel) 75 Mg Tablet, 75 MG PO DAILY, TAB 10/31/23 Aspirin (ASPIRIN 81 MG ECTAB) 81 Mg Ectab, 81 MG PO HS, TAB.EC 10/31/23 Pantoprazole Sodium (Pantoprazole Sodium) 20 Mg Tablet.dr, 20 MG PO HS, TAB 10/31/23 [kelp] No Conflict Check, 1 TAB PO DAILY 05/09/23 [vitamin e] No Conflict Check, 1 TAB PO DAILY 05/09/23 [turmeric curc] No Conflict Check, 1500 MG PO DAILY 05/09/23 Celecoxib (Celecoxib) 200 Mg Capsule, 200 MG PO BID, CAP 05/09/23 Gabapentin (Neurontin) 300 Mg Capsule, 300 MG PO TID, CAP 05/09/23 Ezetimibe (Ezetimibe) 10 Mg Tablet, 10 MG PO HS, TAB 05/09/23 Discontinued Reported Medications Amlodipine Besylate (Amlodipine Besylate) 5 Mg Tablet, 5 MG PO HS, TAB 01/31/24 Losartan Potassium (Losartan Potassium) 50 Mg Tablet, 50 MG PO BID, TAB 10/31/23 Hydrochlorothiazide (Hydrochlorothiazide) 12.5 Mg Tablet, 12.5 MG PO DAILY, TAB 10/31/23 Continued Medications: Alirocumab (Praluent Pen) 75 Mg/Ml Pen.injctr 1 SYR SQ [id number] for 28 Days, #2 ML 0 Refills Ascorbic Acid (Vitamin C) 1,000 Mg Tablet 1 TAB PO DAILY for 15 Days, #15 TAB 0 Refills DIRECTED Aspirin (Aspirin 81 Mg Ectab) 81 Mg Ectab 81 MG PO HS, TAB.EC Celecoxib (Celecoxib) 200 Mg Capsule 200 MG PO BID, CAP Cetirizine HCl (Cetirizine HCl) 10 Mg Tab.chew 1 TAB PO DAILY for allergy symptoms for 30 Days, #30 TAB 0 Refills Clopidogrel Bisulfate (Clopidogrel) 75 Mg Tablet 75 MG PO DAILY, TAB [Coq10] () 200 MG PO DAILY Docusate Sodium (Colace) 100 Mg Capsule 1 CAP PO BID for 30 Days, #60 CAP 0 Refills Ezetimibe (Ezetimibe) 10 Mg Tablet 10 MG PO HS, TAB Gabapentin (Neurontin) 300 Mg Capsule 300 MG PO TID, CAP Hydrocodone/Acetaminophen (Hydrocodon-Acetaminophen 5-325) 5 Mg-325 Mg Tablet 1-2 TAB PO Q4H PRN for SEVERE PAIN (7-10), #84 TAB 0 Refills Hydrocortisone (Hydrocortisone) 5 Mg Tablet 1 TAB PO DAILY for 30 Days, #90 TAB 0 Refills [kelp] () 1 TAB PO DAILY Losartan Potassium (Losartan Potassium) 25 Mg Tablet 25 MG PO BID, TAB [Magnesium Taur] () 2500 MG PO DAILY Metoprolol Succinate (Metoprolol Succinate) 50 Mg Tab.er.24h 50 MG PO DAILY, TAB [place]-3/Dha/Epa/Fish Oil (Fish Oil 1,000 mg Softgel) 1,000 Mg (120 Mg-180 Mg) Capsule 3000 MG PO DAILY, CAP Pantoprazole Sodium (Pantoprazole Sodium) 20 Mg Tablet.dr 20 MG PO HS, TAB Potassium Citrate (Potassium) 99 Mg Capsule 99 MG PO DAILY, CAP Testosterone Cypionate (Testosterone Cypionate) 200 Mg/Ml Vial 200 MG IM 2TIMES MONTH, VIAL Tizanidine HCl (Tizanidine HCl) 2 Mg Tablet 4 MG PO Q8H, #84 TAB 0 Refills [turmeric curc] () 1500 MG PO DAILY [vitamin e] () 1 TAB PO DAILY Time spent arranging discharge: 1-30 minutes ATTESTATION BY PHYSICIAN I have seen and examined the patient. I reviewed the documentation, medical decision making, and treatment plan as noted by the mid-level provider above. I agree with the findings and plan of care. Trina Crump MD, AISHWARYA MD Apr 03, 2024 13:45
--- NOTE | 2024-04-03 14:10 | NUR ---
DISCHARGE Gave patient printed discharge education, educated on activity, diet, medications, follow up visits, answered pt questions. Patient understood.
[2024-04-03] MEDS ORDERED: ASPIRIN 81 MG EC TAB PO SCH (21:00)
[2024-04-03] MEDS ORDERED: EZETIMIBE 10 MG TAB PO SCH (21:00)
[2024-04-03] MEDS ORDERED: PANTOPrazole 40 MG TAB DR PO SCH (21:00)
== END 2024-04-03 14:10 | disposition home or self-care (01) ==
LOC: EDH 18:07 → EDHIP 21:11 → 4BH 22:13
PROVIDERS: ADMIT Internal Medicine; ATTEND Internal Medicine
DX: S73.005A Unspecified dislocation of left hip, initial encounter (principal); I12.9 Hypertensive chronic kidney disease with stage 1 through stage 4 chronic kidney disease, or unspecified chronic kidney disease; E78.00 Pure hypercholesterolemia, unspecified; K21.9 Gastro-esophageal reflux disease without esophagitis; N18.9 Chronic kidney disease, unspecified; D63.1 Anemia in chronic kidney disease; I25.2 Old myocardial infarction; I25.10 Atherosclerotic heart disease of native coronary artery without angina pectoris; Z96.642 Presence of left artificial hip joint; G62.9 Polyneuropathy, unspecified; Z96.652 Presence of left artificial knee joint; Z95.1 Presence of aortocoronary bypass graft; Z98.890 Other specified postprocedural states; Z79.899 Other long term (current) drug therapy; W18.39XA Other fall on same level, initial encounter; Y93.89 Activity, other specified; Y92.89 Other specified places as the place of occurrence of the external cause; Y99.8 Other external cause status
CPT/HCPCS: 27250; 96374; 96375; 80048 ×2; 85025; 36415 ×2; 73502; 73552; 99291; 84443; 83735; 84100; 85027; 97161; 97116; 97530 ×2; G0378 ×16; J1171; J2250; J2405; J2270; J3490; 96372

== ENCOUNTER → 2024-04-06 | Outpatient (CLI) | payer OTHER ==
[~2024-04-06] MED LIST changes: -AMLO-257 PO; -HYDR12.54 PO; +LOSA25TA41 PO; -LOSA50TA64 PO
[2024-04-06 12:10] LABS: BASOPHILS # (AUTO) 0.08 K/uL (0.00-0.20); BASOPHILS % (AUTO) 0.9 % (0.0-5.0); EOSINOPHILS # (AUTO) 0.14 K/uL (0.00-0.70); EOSINOPHILS % (AUTO) 1.6 % (0.0-8.0); HEMATOCRIT 45.8 % (42-54); IMMATURE GRANULOCYTE ABSOLUTE 0.03 K/uL (0-1); LYMPHOCYTES # (AUTO) 2.9 K/uL (1.0-4.8); LYMPHOCYTES % (AUTO) 32.7 % (21.0-51.0); MEAN CORPUSCULAR HEMOGLOBIN 31.7 pg (27.0-33.0); MEAN CORPUSCULAR HGB CONC 31.7 g/dL (32.0-36.0); MEAN CORPUSCULAR VOLUME 100.2 fL (79-99); MONOCYTES # (AUTO) 0.3 K/uL (0.1-1.0); MONOCYTES % (AUTO) 3.3 % (3.0-13.0); NEUTROPHILS # (AUTO) 5.5 K/uL (1.8-7.7); NEUTROPHILS % (AUTO) 61.2 % (40.0-77.0); PLATELET COUNT (AUTO) 219 K/uL (130-400); RED BLOOD CELL COUNT(AUTO) 4.57 MIL/uL (4.50-6.20); RED CELL DISTRIBUTION WIDTH 12.8 % (11.0-15.5)
[2024-04-06 12:35] LABS: ALBUMIN 3.8 g/dL (3.5-5.0); BILIRUBIN,TOTAL 0.4 mg/dL (0.2-1.0); CREATININE 1.2 mg/dL (0.5-1.3); POTASSIUM 4.9 mmol/L (3.5-5.1); TOTAL PROTEIN, SERUM 7.1 g/dL (6.0-8.3)
[2024-04-06 13:07] LABS: MAGNESIUM 1.9 mg/dL (1.80-2.40)
== END | disposition home or self-care (01) ==
LOC: LAB 04-02 15:57
PROVIDERS: ATTEND Internal Medicine Cardiovascular Disease
DX: I10 Essential (primary) hypertension (principal)
CPT/HCPCS: 36415; 80053; 80061; 83735; 83880; 85025

== ENCOUNTER → 2024-05-23 | Outpatient (CLI) | payer OTHER ==
--- NOTE | 2024-05-27 11:39 | HMCSR ---
APPROVED REPORT Laterality: Bilateral Indications Claudication: , PAD VELOCITY AND DOPPLER WAVEFORM ANALYSIS TELECOMMUNICATIONS NETWORK ENGINEER (R) 76.3cm/sec, Triphasic, TELECOMMUNICATIONS NETWORK ENGINEER (L) 129.8cm/sec, Triphasic, Prof Fem Art. (R) 117.3cm/sec, Triphasic, Prof Fem Art. (L) 113.2cm/sec, Triphasic, Fem Art Prox. (R) 44.0cm/sec, Triphasic, Fem Art Prox. (L) 80.1cm/sec, Biphasic, Fem Art Mid. (R) 77.2cm/sec, Triphasic, Fem Art Mid. (L) 66.9cm/sec, Monophasic, Occlusion feed by collaterals Fem Art Dist (R) 215.3cm/sec, Triphasic, Moderate > 50%Fem Art Dist. (L) 33.2cm/sec, Monophasic, Pop Art(AK) (R) 86.1cm/sec, Triphasic, Pop Art (AK) (L) 37.7cm/sec, Biphasic, Pop Art (Fossa)(R) 59.2cm/sec, Triphasic, Pop Art (Fossa) (L) 26.5cm/sec, Monophasic, Pop Art(BK) (R) 56.1cm/sec, Triphasic, Pop Art (BK) (L) 30.1cm/sec, Monophasic, ELECTRIC TAPE SLITTER Prox. (R) 56.1cm/sec, Triphasic, ELECTRIC TAPE SLITTER Prox. (L) 40.4cm/sec, Monophasic, ELECTRIC TAPE SLITTER Mid. (R) 56.1cm/sec, Triphasic, ELECTRIC TAPE SLITTER Mid. (L) 26.0cm/sec, Monophasic, ELECTRIC TAPE SLITTER Dist. (R) 43.2cm/sec, Biphasic, ELECTRIC TAPE SLITTER Dist. (L) 30.5cm/sec, Monophasic, Per Art Prox. (R) 37.6cm/sec, Biphasic, Per Art Prox. (L) 21.1cm/sec, Monophasic, Per Art Mid. (R) 26.4cm/sec, Biphasic, Per Art Mid. (L) 22.4cm/sec, Monophasic, Per Art Dist. (R) 27.5cm/sec, Biphasic, Per Art Dist. (L) 14.8cm/sec, Monophasic, NICOLE Prox. (R) 244.0cm/sec, Biphasic, Moderate > 50%NICOLE Prox. (L) 40.4cm/sec, Monophasic, NICOLE Mid. (R) cm/sec, Occluded NICOLE Mid. (L) cm/sec, Occluded, NICOLE Dist. (R) cm/sec, Occluded, NICOLE Dist. (L) cm/sec, Occluded, Technologist Impression Evidence of >50% stenosis in the Right dst SFA and prx NICOLE. Occlusion of the Right mid to dst NICOLE. Left mid SFA is occluded, although segments are supllied by collaterals, monophasic flow distally. Occlusion of the Left mid to dst NICOLE. Conclusion Evidence of >50% stenosis in the Right dst SFA and prx NICOLE. Occlusion of the Right mid to dst NICOLE. Left mid SFA is occluded, although segments are supllied by collaterals, monophasic flow distally. Occlusion of the Left mid to dst NICOLE. Conclusion Evidence of >50% stenosis in the Right dst SFA and prx NICOLE. Occlusion of the Right mid to dst NICOLE. Left mid SFA is occluded, although segments are supllied by collaterals, monophasic flow distally. Occlusion of the Left mid to dst NICOLE.
--- NOTE | 2024-05-27 11:44 | HMCSR ---
APPROVED REPORT Bilateral Lower Extremity Venous Study for DVT., Venous Competence. Indications i87.1, i87.2 Vein Imaging CFV (R): Normal flow, augmentation and compression. No evidence of DVT. 14.4mm 1433ms of reflux. SFJ (R): Normal flow, augmentation and compression. No evidence of DVT. FEM (R): Normal flow, augmentation and compression. No evidence of DVT. POP (R): Normal flow, augmentation and compression. No evidence of DVT. DFV (R): Normal flow, augmentation and compression. No evidence of DVT. PTV (R): Normal flow, augmentation and compression. No evidence of DVT. Peroneals (R): Normal flow, augmentation and compression. No evidence of DVT. CFV (L): Normal flow, augmentation and compression. No evidence of DVT. 16.2mm 2411ms of reflux. SFJ (L): Normal flow, augmentation and compression. No evidence of DVT. FEM (L): Normal flow, augmentation and compression. No evidence of DVT. POP (L): Normal flow, augmentation and compression. No evidence of DVT. DFV (L): Normal flow, augmentation and compression. No evidence of DVT. PTV (L): Normal flow, augmentation and compression. No evidence of DVT. Peroneals (L): Normal flow, augmentation and compression. No evidence of DVT. Technologist Impression Deep veins of the bilateral lower extremities appear patent and compressible without thrombus. Deep venous reflux noted in the RCFV and LCFV. No superfiical venous insufficiency seen. RGSV junction 6.2mm 0.0ms thigh 4.3mm 0.0ms knee 2.7mm 0.0ms calf 2.3mm 0.0ms RSSV prox 1.5mm 0.0mm mid 1.2mm 0.0ms LGSV junction 4.8mm 0.0ms thigh 5.0mm 0.0ms knee 3.4mm 0.0ms calf 3.5mm 0.0ms LSSV prox 0.7mm 0.0ms mid 0.9mm 0.0ms Conclusion Deep veins of the bilateral lower extremities appear patent and compressible without thrombus. Deep venous reflux noted in the RCFV and LCFV. No superfiical venous insufficiency seen. Conclusion Deep veins of the bilateral lower extremities appear patent and compressible without thrombus. Deep venous reflux noted in the RCFV and LCFV. No superfiical venous insufficiency seen.
== END | disposition home or self-care (01) ==
LOC: SHCH 10:44
PROVIDERS: ATTEND Internal Medicine Cardiovascular Disease
DX: I87.2 Venous insufficiency (chronic) (peripheral) (principal); I70.203 Unspecified atherosclerosis of native arteries of extremities, bilateral legs; I87.1 Compression of vein
CPT/HCPCS: 93925; 93970

== ENCOUNTER 2024-08-21 12:34 | Emergency (ER) | payer OTHER ==
[~2024-08-21] VITALS: Ht 193 cm; Wt 102.1 kg
--- NOTE | 2024-08-21 12:44 | ERN ---
General Chief Complaint: Hip Pain/Injury Stated Complaint: HIP PAIN Time Seen by MD: 12:36 Source: patient, EMS History of Present Illness Initial Comments PATIENT IS A 73-YEAR-OLD MALE COMING IN COMPLAINING OF LEFT HIP PAIN. PER PATIENT HE WAS BENDING OVER AND FELT IF HIS LEFT HIP WAS DISLOCATED. HE HAS HAD THIS HAPPENED BEFORE. Allergies: Coded Allergies: acetaminophen (Unverified Allergy, Unknown, 01/31/24) pramipexole (Unverified Allergy, Unknown, 05/09/23) propoxyphene (Unverified Allergy, Unknown, 01/31/24) Home Meds Active Scripts Docusate Sodium (Colace) 100 Mg Capsule, 1 CAP PO BID for 30 Days, #60 CAP 0 Refills Prov:JEFFRY RODRIGUEZ MD 02/05/24 Tizanidine HCl (Tizanidine HCl) 2 Mg Tablet, 4 MG PO Q8H, #84 TAB 0 Refills Prov:JEFFRY RODRIGUEZ MD 02/05/24 Hydrocodone/Acetaminophen (Hydrocodon-Acetaminophen 5-325) 5 Mg-325 Mg Tablet, 1-2 TAB PO Q4H PRN for SEVERE PAIN (7-10), #84 TAB 0 Refills Prov:JEFFRY RODRIGUEZ MD 02/05/24 Reported Medications Losartan Potassium (Losartan Potassium) 25 Mg Tablet, 25 MG PO BID, TAB 04/03/24 Alirocumab (Praluent Pen) 75 Mg/Ml Pen.injctr, 1 SYR SQ [id number] for 28 Days, #2 ML 0 Refills 01/31/24 [Magnesium Taur] No Conflict Check, 2500 MG PO DAILY 01/31/24 Ascorbic Acid (Vitamin C) 1,000 Mg Tablet, 1 TAB PO DAILY for 15 Days, #15 TAB 0 Refills DIRECTED 01/31/24 [Coq10] No Conflict Check, 200 MG PO DAILY 01/31/24 Testosterone Cypionate (Testosterone Cypionate) 200 Mg/Ml Vial, 200 MG IM 2TIMES MONTH, VIAL 01/31/24 Hydrocortisone (Hydrocortisone) 5 Mg Tablet, 1 TAB PO DAILY for 30 Days, #90 TAB 0 Refills 01/31/24 Cetirizine HCl (Cetirizine HCl) 10 Mg Tab.chew, 1 TAB PO DAILY for allergy symptoms for 30 Days, #30 TAB 0 Refills 01/31/24 Potassium Citrate (Potassium) 99 Mg Capsule, 99 MG PO DAILY, CAP 10/31/23 [place]-3/Dha/Epa/Fish Oil (Fish Oil 1,000 mg Softgel) 1,000 Mg (120 Mg-180 Mg) Capsule, 3000 MG PO DAILY, CAP 10/31/23 Metoprolol Succinate (Metoprolol Succinate) 50 Mg Tab.er.24h, 50 MG PO DAILY, TAB 10/31/23 Clopidogrel Bisulfate (Clopidogrel) 75 Mg Tablet, 75 MG PO DAILY, TAB 10/31/23 Aspirin (ASPIRIN 81 MG ECTAB) 81 Mg Ectab, 81 MG PO HS, TAB.EC 10/31/23 Pantoprazole Sodium (Pantoprazole Sodium) 20 Mg Tablet.dr, 20 MG PO HS, TAB 10/31/23 [kelp] No Conflict Check, 1 TAB PO DAILY 05/09/23 [vitamin e] No Conflict Check, 1 TAB PO DAILY 05/09/23 [turmeric curc] No Conflict Check, 1500 MG PO DAILY 05/09/23 Celecoxib (Celecoxib) 200 Mg Capsule, 200 MG PO BID, CAP 05/09/23 Gabapentin (Neurontin) 300 Mg Capsule, 300 MG PO TID, CAP 05/09/23 Ezetimibe (Ezetimibe) 10 Mg Tablet, 10 MG PO HS, TAB 05/09/23 Past Medical History Past Medical History: CAD, High Cholesterol, Hypertension Medical History Other: HEART CATH Past Surgical History: Other Surgical History Other: CARDIAC STENTS Social History Social History: Lives with family ROS Dictation CONSTITUTIONAL: NO CHILLS, NO FEVER, NO WEAKNESS, NO DIAPHORESIS, NO MALAISE. HEAD/FACE: NO SIGNS OF TRAUMA. EENT: NO EYE PAIN, NO BLURRED VISION, NO TEARING, NO DOUBLE VISION, NO EAR PAIN, NO EAR DISCHARGE, NO NOSE PAIN, NO NASAL CONGESTION, NO THROAT PAIN, NO THROAT SWELLING, NO MOUTH PAIN. RESPIRATORY: NO COUGH, NO ORTHOPNEA, NO SOB, NO STRIDOR, NO WHEEZING. CARDIOVASCULAR: NO CHEST PAIN, NO EDEMA, NO PALPITATIONS, NO SYNCOPE. GASTROINTESTINAL/ABDOMINAL: NO ABDOMINAL PAIN, NO CONSTIPATION, NO DIARRHEA, NO NAUSEA, NO VOMITING. GENITOURINARY: NO ABNORMAL DISCHARGE, NO DYSURIA, NO FREQUENT URINATION, NO HEMATURIA. NO COMPLAINTS OF PAIN IN THE GENITALS. MUSCULOSKELETAL: NO BACK PAIN, NO GOUT, NO JOINT PAIN, NO JOINT SWELLING, NO MUSCLE PAIN, NO MUSCLE STIFFNESS, NO NECK PAIN. INTEGUMENTARY: NO CHANGE IN COLOR, NO CHANGE IN HAIR/NAILS, NO DRYNESS, NO LESION, NO LUMPS, NO RASH. NEUROLOGICAL/PSYCH: NO ANXIETY, NOT DEPRESSED, NO EMOTIONAL PROBLEM, NO HEADACHE, NO NUMBNESS, NO PRE-EXISTING DEFICIT, NO HISTORY OF SEIZURES, NO TREMORS, NO WEAKNESS. HEMATOLOGIC/LYMPHATIC: NOT ANEMIC, NO HISTORY OF BLOOD CLOTS, NO APPARENT BLEEDING, NO BRUISING, GLANDS NOT SWOLLEN. ALL SYSTEMS NEGATIVE, EXCEPT NOTED. Physical Exam Physical Exam Dictation VITAL SIGNS: REVIEWED. GENERAL APPEARANCE: ALERT, ORIENTED X3, NO ACUTE DISTRESS, OBESE. HEAD AND FACE: NON-TRAUMATIC. EYES: PERRL, PINK CONJUNCTIVAS, EYELID NO TRAUMA, ANTERIOR CHAMBER CLEAR. EARS: PINNAS INTACT AND NO SIGNS OF TRAUMA OR ERYTHEMA. EAR CANALS CLEAR AND NO DISCHARGE. TMS NO ERYTHEMA. NOSE: NO DISCHARGE, NO BLEEDING. OROPHARYNX: MOUTH NORMAL, TEETH NO CARIES, TONGUE PINK. PHARYNX CLEAR, NO E RYTHEMA. TONSILS NO EXUDATES, NO ABSCESSES NOTED. MUCOUS MEMBRANE MOIST. NECK: SUPPLE, NON-TENDER, NO THYROMEGALY, NO MASSES, NO JVD, NO BRUITS. BREAST: DEFERRED. CHEST: NO TENDERNESS, NO CREPITUS, NO PARADOXICAL MOVEMENT, NO RETRACTIONS. LUNGS: CLEAR, WELL-VENTILATED, SYMMETRIC, NO RALES, NO WHEEZING, NO RHONCHI, NO STRIDOR, GOOD BREATH SOUNDS BILATERALLY. HEART: REGULAR RATE, REGULAR RHYTHM, NO MURMUR, NO GALLOPS. VASCULAR: NO PERIPHERAL EDEMA. ABDOMEN: SOFT, POSITIVE BOWEL SOUNDS, NONDISTENDED, NO GUARDING, NONTENDER, NO REBOUND, NO MASSES NO HEPATOMEGALY, NO SPLENOMEGALY, NO GILLESPIE'S SIGN, NO HERNIAS. RECTAL: DEFERRED. GENITAL: DEFERRED. NEUROLOGICAL: NORMAL SPEECH, GROSS MOTOR FUNCTION INTACT, GROSS SENSORY FUNCTION INTACT. MUSCULOSKELETAL: NECK NONTENDER, FULL RANGE OF MOTION, BACK NONTENDER, FULL RANGE OF MOTION. EXTREMITIES: NONTENDER, FULL RANGE OF MOTION. SKIN: COLOR PINK, DRY, NO TURGOR, NO RASH, NO LACERATIONS, NO ABRASIONS, NO CONTUSIONS. LYMPHATICS: DEFERRED. Results Laboratory and Microbiology Labs Reviewed?: Yes EKG/XRAY/US/CT/MRI X-RAY Comment LEFT HIP- HIP DISLOCATION LEFT HIP REPEAT- HIP REDUCTION SUCCESSFUL MDM MDM: DIFFERENTIAL DIAGNOSIS: HIP DISLOCATION, HIP REDUCTION, HIP FRACTURE, RATIONALE: TESTS CONSIDERED AND ORDERED SECONDARY TO SHARED DECISION MAKING INCLUDE: PREVIOUS OUTSIDE RECORDS REVIEWED: OLD ER VISITS. RISK OF COMPLICATION AND/OR MORBIDITY OR MORTALITY OF PATIENT MANAGEMENT: NONE MEDICATIONS-PER MEDICATION RECONCILIATION PATIENT IS A 73-YEAR-OLD MALE COMING IN TO BE EVALUATED FOR LEFT HIP PAIN. X- RAY DISCLOSE A LEFT HIP DISLOCATION. REPEAT X-RAY HIP REDUCTION SUCCESSFUL. PATIENT WILL BE DISCHARGED IN STABLE CONDITION ED Course Orders Procedure Category Date Status Time Midazolam Hcl (Versed) PHA 08/21/24 Complete 13:00 Ketamine 50mg/Ml PHA 08/21/24 Complete Syringe (Ketamine 13:00 Hip Unilat 2-3vw Left RAD 08/21/24 Taken 12:36 Hip Unilat 2-3vw Left RAD 08/21/24 Taken 13:14 Current Medications Medications (Trade) Dose Ordered Sig/Jaime Route PRN Reason Start Time Stop Time Status Last Admin Dose Admin Ketamine HCl (ketaMINE 50MG/ ML SYRINGE) 100 mg ONCE ONCE IM 08/21/24 13:00 08/21/24 13:01 DC 08/21/24 13:09 Midazolam HCl (Versed) 5 mg ONCE ONCE IVP 08/21/24 13:00 08/21/24 13:01 DC 08/21/24 13:08 Vital Signs Date Time Temp Pulse Resp B/P (MAP) Pulse Ox O2 Delivery O2 Flow Rate FiO2 08/21/24 12:35 98.4 96 17 131/74 98 Room Air 0 Joint Reduction Joint Reduction : Joint Reduction Site: hip (L) Conscious Sedation: Yes Reduction Attempts: 1 Pre-Procedure NV Exam: Yes Post-Procedure NV Exam: Yes post joint reduction film: joint reduced DX & DISP Disposition: Discharge Departure Impression: Primary Impression: Dislocation of prosthesis of left hip joint Condition: Stable Additional Instructions: FOLLOW-UP WITH PRIMARY CARE PROVIDER IN 1 TO 2 DAYS. TAKE MEDICATIONS DIRECTED HERE IN THE EMERGENCY ROOM. OKAY TO CONTINUE HOME MEDICATIONS UNLESS OTHERWISE DISCUSSED DURING YOUR VISIT IN THE EMERGENCY ROOM TODAY. RETURN TO YOUR NEAREST EMERGENCY ROOM IF SYMPTOMS WORSEN OR IF THERE IS NO IMPROVEMENT. CALL 911 IF YOU NEED IMMEDIATE ASSISTANCE. TAKE TYLENOL TSLN-PRE-FANZSUF NEEDED AND IF NO CONTRAINDICATIONS ARE PRESENT. INCREASE ORAL HYDRATION. A WOUND CULTURE OR URINE CULTURE WAS ORDERED HERE IN THE EMERGENCY ROOM DEPARTMENT PLEASE FOLLOW-UP WITH PRIMARY CARE PROVIDER AND ADVISE THEM TO GET REPEAT PORTS FROM OUR FACILITY. IF YOU HAD ANY SANA WRAP/SPLINTS THAT WERE APPLIED HERE, PLEASE DO NOT REMOVE THEM UNTIL YOU SEE YOUR PRIMARY CARE OR SPECIALTY. REFERRALS: Referrals: ASIF JASMINE MD (PCP) VALERIO SUNG MD Time of Disposition: 13:42 NORRIS SANCHEZ MD August 21, 2024 12:44
--- NOTE | 2024-08-21 13:00 | NUR ---
CONSENT: CONSENT OBRAINED FOR CONSCIOUS SEDATION FOR REDUCTION OF L HIP DISCLOCATION
[2024-08-21] MEDS: MIDAZOLAM HCL 1 MG/ML 2ML VIAL IVP ONE (13:08)
[2024-08-21] MEDS: ketaMINE 50MG/ML SYRINGE 50 MG/ML DISP.SYRIN IM ONE (13:09)
--- NOTE | 2024-08-21 14:11 | HMCIMG ---
HIP UNILAT 2-3VW LEFT HISTORY: Post reduction COMPARISON: Same day x-ray TECHNIQUE: 2 images of the left hip were obtained status post reduction. FINDINGS: Total left hip replacement changes are seen. Alignment is grossly adequate post reduction. There is no acute displaced fracture or dislocation. Degenerative changes are seen. IMPRESSION: 1. Findings as described above.
[2024-08-21 14:40] VITALS: BP 144/81; PULSE 66; RESP 15; TEMP 97.5; O2SAT 97
--- NOTE | 2024-08-21 14:40 | NUR ---
1307 procedure initiated 1309 versed 5mg iv given 1311 ketamine 100mg iv given 1315 left hip open reduction performed 1440 patient was dc'd by dr. lopez, alert x3, i dc'd patients iv with cath still in place and applied 2 x2 gauze with coban, i explained to patient to follow up with pcp and dr. alex, i also provided patient info based on diagnosis, patient was taken via wheelchair by adriana edouard, accompanied by , no complications
--- NOTE | 2024-08-21 16:57 | HMCIMG ---
HIP UNILAT 2-3VW LEFT HISTORY: Hip dislocation COMPARISON: None TECHNIQUE: 2 images of left hip were obtained. FINDINGS: There is left hip prosthesis with dislocation.+ No acute displaced fracture is seen. Degenerative changes are seen. IMPRESSION: 1. Findings as described above.
== END 2024-08-21 14:40 | disposition home or self-care (01) ==
LOC: EDH 12:34
DX: T84.021A Dislocation of internal left hip prosthesis, initial encounter (principal); I10 Essential (primary) hypertension; E78.00 Pure hypercholesterolemia, unspecified; I25.10 Atherosclerotic heart disease of native coronary artery without angina pectoris; Z95.5 Presence of coronary angioplasty implant and graft; Z88.8 Allergy status to other drugs, medicaments and biological substances; Z79.82 Long term (current) use of aspirin; Z79.02 Long term (current) use of antithrombotics/antiplatelets; Z79.899 Other long term (current) drug therapy; Z96.642 Presence of left artificial hip joint; X50.1XXA Overexertion from prolonged static or awkward postures, initial encounter
CPT/HCPCS: 99285; 27265; 73502 ×2; J2250; J3490; 99284

== ENCOUNTER → 2024-09-24 | Outpatient (CLI) | payer OTHER ==
[2024-09-24] MEDS: REGADENOSON 0.4 MG/5 ML PF SYG IVP ONE (10:31)
== END | disposition home or self-care (01) ==
LOC: SHCH 08:42
PROVIDERS: ATTEND Internal Medicine Cardiovascular Disease
DX: I10 Essential (primary) hypertension (principal); R06.02 Shortness of breath
CPT/HCPCS: 78452; 93017; J2785; A9500 ×2